=== PATIENT | female | born 1970 | race Caucasian/White ===

== ENCOUNTER → 2020-02-13 10:28 | Outpatient (BNVA) | payer OTHER, SELFPAY | PROVIDERS: PCP Internal Medicine; Referring Provider Internal Medicine; Visit Provider Physician Assistant | DX: Z76.89 Persons encountering health services in other specified circumstances (principal) ==

== ENCOUNTER → 2020-08-06 14:06 | Outpatient (BNVA) | payer OTHER, SELFPAY | PROVIDERS: PCP Internal Medicine; Visit Provider Surgery Vascular Surgery ==

== ENCOUNTER 2020-08-27 07:45 | Outpatient (REF) | payer OTHER, SELFPAY ==
--- NOTE | ~2020-08-27 | US_ITS ---
EXAMINATION: LEFT KNEE X-RAY CLINICAL INFORMATION: Pain COMPARISON: None TECHNIQUE: 3 views of the left knee FINDINGS: Bone alignment is normal. No fracture or dislocation is seen. There is joint space narrowing at the medial femoral tibial joint. Joint spaces are otherwise normal. There is no joint effusion. US/US venous duplex LE IMPRESSION: Joint space narrowing at the medial femoral tibial joint otherwise unremarkable exam. EXAMINATION: RIGHT and LEFT LOWER EXTREMITY VENOUS ULTRASOUND (Reflux Exam) CLINICAL INDICATION: leg pain and varicose veins.. History of left leg vein stripping. COMPARISON: None. TECHNIQUE: Color flow triplex imaging and compression Doppler was performed to evaluate both the deep and the superficial systems bilaterally. To evaluate the superficial system, the examination was performed in the upright position. Color-flow Doppler ultrasound and compression ultrasound were utilized. In addition, maneuvers were utilized to demonstrate reflux. FINDINGS: 1. DEEP VENOUS ULTRASOUND OF THE RIGHT LOWER EXTREMITY: Respiratory variation, normal compression and augmented flow are noted in the right common femoral vein as well as the right popliteal vein and there is no evidence of deep venous thrombosis at these locations. There is no evidence of reflux in the deep system in either the common femoral vein or the popliteal vein. There is no evidence of a Kingston's cyst. 2. SUPERFICIAL ULTRASOUND WITH DOPPLER OF RIGHT LOWER EXTREMITY: The right great saphenous vein at the saphenofemoral junction measures 6 mm, at the mid thigh 19 mm, [id number] not seen mm, plgkm-xoe-[id number] 2 mm, at mid calf 2 mm and at the ankle measures 3 mm. There is right greater saphenous vein reflux measuring 3.2 cm in the mid calf. The right small saphenous vein measures 1-3 mm and shows no reflux. There is a analysis or research safety inspector in the proximal calf that measures 2 mm and demonstrates 1.3 seconds reflux. There are 2 other larger perforators measuring 3 and 4 mm in the calf that do not demonstrate reflux. There are varicosities at the knee and calf that measure 3 to 4 mm and demonstrates 2.4 to 3 seconds reflux. 3. DEEP VENOUS ULTRASOUND OF THE LEFT LOWER EXTREMITY: Respiratory variation, normal compression and augmented flow are noted in the left common femoral vein as well as the left popliteal vein and there is no evidence of deep venous thrombosis at these locations. There is no evidence of reflux in the deep system in either the common femoral vein or the popliteal vein. . There is no evidence of a Kingston's cyst. 4. SUPERFICIAL ULTRASOUND WITH DOPPLER OF LEFT LOWER EXTREMITY: Left great saphenous vein at the saphenofemoral junction measures 9 mm, at the mid thigh 5 mm, [id number]-[id number]-[id number] 5 mm, jrmmn-ctr-mdyp 2 mm, at mid calf 2 mm and at the ankle measures 2 mm. Great saphenous there is diffuse right greater saphenous vein reflux measuring maximum 3.2 seconds at the knee. There is an accessory lateral greater saphenous vein that measures 2 mm and does not demonstrate reflux. The left small saphenous vein measures 2 mm and shows no reflux. There are is a varicosity in the mid thigh that measures 6 mm and demonstrates 1 seconds reflux in the proximal calf that measures 7 mm and demonstrates 1.6 seconds reflux. IMPRESSION: 1. No evidence of reflux or thrombus in the common femoral veins or popliteal veins bilaterally. 2. Right greater saphenous vein not identified above the knee. 3.2 seconds right greater saphenous vein reflux in the calf. Reflux in a right analysis or research safety inspector in the calf and varicosities at the knee and calf on the right. 3. Diffuse left greater saphenous vein reflux measuring maximum 3.2 seconds. Reflux in varicosities in the thigh and calf.
== END 2020-08-27 07:46 | disposition home or self-care (01) ==
LOC: HO.US 07:45
PROVIDERS: Visit Provider Surgery Vascular Surgery
DX: I83.893 Varicose veins of bilateral lower extremities with other complications (principal); M25.562 Pain in left knee
CPT/HCPCS: 73562; 93970

== ENCOUNTER → 2020-09-03 12:54 | Outpatient (BNVA) | payer OTHER, SELFPAY | PROVIDERS: PCP Internal Medicine; Visit Provider Surgery Vascular Surgery ==

== ENCOUNTER → 2020-09-20 08:32 | Outpatient (BNVA) | payer OTHER, SELFPAY | PROVIDERS: PCP Internal Medicine; Visit Provider Surgery Vascular Surgery | DX: I83.12 Varicose veins of left lower extremity with inflammation (principal) | CPT/HCPCS: 36482 ==

== ENCOUNTER 2020-09-23 14:32 | Outpatient (REF) | payer OTHER, SELFPAY ==
--- NOTE | ~2020-09-23 | US_ITS ---
EXAMINATION: US VENOUS ULTRASOUND WITH DOPPLER LOWER EXTREMITY, LEFT CLINICAL INFORMATION: Post left venous seal procedure COMPARISON: Preoperative exam 08/27/2020 TECHNIQUE: Ultrasound of the deep veins is performed from the hip to the calf with compression sonography and color and pulse Doppler assessment. Spectral analysis with color-flow imaging is performed. FINDINGS: There is normal venous compression and respiratory variation and augmented flow. The visualized common femoral vein, superficial femoral vein, profunda femoral vein, popliteal vein, and the trifurcation region shows no evidence of deep venous thrombosis. There is echogenic material seen in the left greater saphenous vein 2.9 cm from the saphenofemoral junction compatible with post venous seal procedure changes. There is no popliteal fossa cyst. US/US venous duplex LE LT IMPRESSION: No DVT demonstrated in the left lower extremity.
== END 2020-09-23 14:33 | disposition home or self-care (01) ==
LOC: HO.US 14:32
PROVIDERS: Visit Provider Surgery Vascular Surgery
DX: M79.605 Pain in left leg (principal)
CPT/HCPCS: 93971

== ENCOUNTER → 2020-10-03 08:56 | Outpatient (BNVA) | payer OTHER, SELFPAY | PROVIDERS: PCP Internal Medicine; Visit Provider Surgery Vascular Surgery ==

== ENCOUNTER 2020-11-04 11:10 | Outpatient (REF) | payer OTHER, SELFPAY ==
[2020-11-04 14:09] LABS: MANUAL DIFF FLAG NO
[2020-11-04 14:15] LABS: Basophils Absolute Auto 0.1 X10*3/uL (0.0-0.2); Basophils Percent Auto 1.5 % (0-2); Eosinophils Absolute Auto 0.6 X10*3/uL (0.0-0.4); Eosinophils Percent Auto 9.7 % (0-4); Hematocrit 38.4 % (37-47); Hemoglobin 12.1 g/dl (12.0-16.0); Imm Gran Abs Auto 0.01 X10*3/uL (0.00-0.03); Imm Gran Pct Auto 0.2 % (0.0-0.4); Lymphocytes Absolute Auto 2.4 X10*3/uL (1.2-4.9); Lymphocytes Percent Auto 41.4 % (20-40); Mean Corpuscular HGB Conc 31.5 g/dl (31.0-35.0); Mean Corpuscular Hemoglobin 27.8 pg (27.0-33.0); Mean Corpuscular Volume 88.1 fL (80-98); Mean Platelet Volume 10.3 fL (9.4-12.3); Monocytes Absolute Auto 0.6 X10*3/uL (0.1-1.2); Monocytes Percent Auto 9.3 % (2-11); Neutrophils Absolute Auto 2.2 X10*3/uL (2.0-8.3); Neutrophils Percent Auto 37.9 % (45-73); Platelet Count 409 X10*3/uL (160-400); Red Blood Count 4.36 X10*6/uL (4.20-5.50); Red Cell Distribution Width 13.5 % (11.0-16.0); White Blood Count 5.9 X10*3/uL (4.8-10.8)
[2020-11-04 14:30] LABS: Alanine Aminotransferase 19 U/L (0-31); Albumin Level 4.4 g/dL (3.5-5.0); Alkaline Phosphatase 66 U/L (39-117); Anion Gap 15 (12-20); Aspartate Amino Transferase 16 U/L (5-31); Bilirubin Total 0.3 mg/dL (0.0-1.0); Blood Urea Nitrogen 14 mg/dL (9-16); Calcium 9.6 mg/dL (8.4-10.2); Carbon Dioxide 24 mmol/L (22-29); Chloride 105 mmol/L (96-108); Cholesterol 201 mg/dL; Estimated Glomerular Filt Rate > 60; Glucose Fasting 88 mg/dL (60-99); HDL Cholesterol 55 mg/dL; LDL Cholesterol Calculated 120 mg/dl; Potassium 5.3 mmol/L (3.3-5.1); Sodium 139 mmol/L (135-145); Total Protein 7.4 g/dL (6.5-8.0); Triglycerides 132 mg/dL
[2020-11-04 14:52] LABS: TSH reflex Free T4 1.93 uIU/mL (0.32-4.0)
[2020-11-09 14:46] LABS: Vitamin D 25-OH, D2 <4 ng/mL; Vitamin D 25-OH, D3 35 ng/mL; Vitamin D 25-OH, Total 35 ng/mL (30-100)
== END 2020-11-04 11:11 | disposition home or self-care (01) ==
LOC: HO.HMGCLDS 11:10
PROVIDERS: PCP Internal Medicine; Visit Provider Internal Medicine
DX: Z00.01 Encounter for general adult medical examination with abnormal findings (principal); E66.09 Other obesity due to excess calories
CPT/HCPCS: 36415; 80053; 80061; 82306; 84443; 85025

== ENCOUNTER 2020-12-23 10:29 | Outpatient (REF) | payer OTHER, SELFPAY ==
--- NOTE | ~2020-12-23 | MM_ITS ---
EXAMINATION: MM SCREENING DIGITAL BREAST TOMOSYNTHESIS, BILATERAL CLINICAL INFORMATION: Screening. Asymptomatic. The lifetime risk of breast cancer based on the Tyrer-Cuzick Model is 8%. COMPARISON: Mammography: 01/27/2019, outside mammography 03/01/2012 ([place]). Targeted ultrasound left breast 02/08/2019. TECHNIQUE: Digital breast tomosynthesis is performed in both the craniocaudal and mediolateral oblique views along with computer-aided detection (CAD). Synthesized 2D images are generated from the tomosynthesis. FINDINGS: The breasts are heterogeneously dense, which may obscure small masses (ACR BI-RADS breast composition Category c). Breast tissue composition borders on average fibroglandular. Parenchymal pattern is similar to prior studies. There is no architectural abnormality or developing density. The axilla and skin contours are unremarkable. There are scattered punctate calcifications again seen in both breasts. No suspicious calcifications. MM/MM tomosynthesis screening BI IMPRESSION: No mammographic evidence of malignancy. ASSESSMENT: BI-RADS 2: Benign RECOMMENDATION: Routine annual mammography screening. This patient's information was entered into a reminder system with a target due date for their next mammogram.
== END 2020-12-23 10:30 | disposition home or self-care (01) ==
LOC: HO.MAMMO 10:29
PROVIDERS: PCP Internal Medicine; Visit Provider Internal Medicine
DX: Z12.31 Encounter for screening mammogram for malignant neoplasm of breast (principal)
CPT/HCPCS: 77063; 77067

== ENCOUNTER 2021-04-08 09:30 | Outpatient (REF) | payer OTHER, SELFPAY ==
[2021-04-09 09:10] LABS: BV Int Neg Control Negative (Negative); BV Int Pos Control Positive (Positive)
[2021-04-09 10:32] LABS: CT PCR NOT DETECTED (Not Detect.); NG PCR NOT DETECTED (Not Detect.)
[2021-04-10 22:52] LABS: HPV mRNA E6/E7 rflx Not Detected (Not Detected)
== END 2021-04-08 09:31 | disposition home or self-care (01) ==
LOC: HO.LAB 09:30
PROVIDERS: Visit Provider Advanced Practice Midwife
DX: Z01.419 Encounter for gynecological examination (general) (routine) without abnormal findings (principal); N94.6 Dysmenorrhea, unspecified
CPT/HCPCS: 87480; 87491; 87510; 87591; 87624; 87660; 88142

== ENCOUNTER 2021-11-10 08:39 | Outpatient (REF) | payer OTHER, SELFPAY ==
[2021-11-10 11:38] LABS: MANUAL DIFF FLAG NO
[2021-11-10 11:47] LABS: Basophils Absolute Auto 0.1 X10*3/uL (0.0-0.2); Basophils Percent Auto 1.3 % (0-2); Eosinophils Absolute Auto 0.3 X10*3/uL (0.0-0.4); Hematocrit 35.8 % (37.0-47.0); Hemoglobin 11.2 g/dl (12.0-16.0); Imm Gran Abs Auto 0.02 X10*3/uL (0.00-0.03); Imm Gran Pct Auto 0.3 % (0.0-0.4); Lymphocytes Absolute Auto 2.1 X10*3/uL (1.2-4.9); Lymphocytes Percent Auto 34.7 % (20-40); Mean Corpuscular HGB Conc 31.3 g/dl (31.0-35.0); Mean Corpuscular Hemoglobin 25.9 pg (27.0-33.0); Mean Corpuscular Volume 82.7 fL (80.0-98.0); Mean Platelet Volume 10.3 fL (9.4-12.3); Monocytes Absolute Auto 0.5 X10*3/uL (0.1-1.2); Monocytes Percent Auto 8.2 % (2-11); Neutrophils Percent Auto 50.5 % (45-73); Platelet Count 459 X10*3/uL (160-400); Red Blood Count 4.33 X10*6/uL (4.20-5.50); Red Cell Distribution Width 16.8 % (11.0-16.0)
[2021-11-10 11:57] LABS: Alanine Aminotransferase 17 U/L (0-31); Alkaline Phosphatase 62 U/L (39-117); Anion Gap 12 (12-20); Aspartate Amino Transferase 15 U/L (5-31); Bilirubin Total 0.6 mg/dL (0.0-1.0); Blood Urea Nitrogen 13 mg/dL (9-16); Calcium 8.8 mg/dL (8.4-10.2); Carbon Dioxide 26 mmol/L (22-29); Chloride 105 mmol/L (96-108); Cholesterol 203 mg/dL; Estimated Glomerular Filt Rate > 60; Glucose Fasting 93 mg/dL (60-99); HDL Cholesterol 59 mg/dL; LDL Cholesterol Calculated 125 mg/dl; Potassium 4.2 mmol/L (3.3-5.1); Sodium 139 mmol/L (135-145); Total Protein 6.9 g/dL (6.5-8.0); Triglycerides 96 mg/dL
[2021-11-10 12:23] LABS: TSH reflex Free T4 1.86 uIU/mL (0.32-4.0)
[2021-11-15 16:13] LABS: Vitamin D 25-OH, D2 <4 ng/mL; Vitamin D 25-OH, D3 29 ng/mL; Vitamin D 25-OH, Total 29 ng/mL (30-100)
== END 2021-11-10 08:40 | disposition home or self-care (01) ==
LOC: HO.HMGCLDS 08:39
PROVIDERS: PCP Internal Medicine; Visit Provider Internal Medicine
DX: Z00.01 Encounter for general adult medical examination with abnormal findings (principal); R09.82 Postnasal drip; E66.09 Other obesity due to excess calories; M79.671 Pain in right foot; M79.672 Pain in left foot
CPT/HCPCS: 36415; 80053; 80061; 82306; 84443; 85025

== ENCOUNTER 2021-12-29 10:26 | Outpatient (REF) | payer OTHER, SELFPAY ==
--- NOTE | ~2021-12-29 | MM_ITS ---
EXAMINATION: MM SCREENING DIGITAL BREAST TOMOSYNTHESIS, BILATERAL CLINICAL INFORMATION: Screening. Asymptomatic. The lifetime risk of breast cancer based on the Tyrer-Cuzick Model is 8%. COMPARISON: Mammography: 12/23/2020, 01/27/2019, 03/01/2012 TECHNIQUE: Digital breast tomosynthesis is performed in both the craniocaudal and mediolateral oblique views along with computer-aided detection (CAD). Synthesized 2D images are generated from the tomosynthesis. Additional exaggerated left CC view is provided. FINDINGS: The breasts are heterogeneously dense, which may obscure small masses (ACR BI-RADS breast composition Category c). There are no significant masses, abnormal calcifications, or other abnormalities. Parenchymal pattern is similar to prior studies. There is no developing density or architectural abnormality. The axilla and skin contours are unremarkable. No significant changes. MM/MM tomosynthesis screening BI IMPRESSION: No mammographic evidence of malignancy. ASSESSMENT: BI-RADS 1: Negative RECOMMENDATION: Routine annual mammography screening. This patient's information was entered into a reminder system with a target due date for their next mammogram.
== END 2021-12-29 10:27 | disposition home or self-care (01) ==
LOC: HO.MAMMO 10:26
PROVIDERS: PCP Internal Medicine; Visit Provider Internal Medicine
DX: Z12.31 Encounter for screening mammogram for malignant neoplasm of breast (principal)
CPT/HCPCS: 77063; 77067

== ENCOUNTER 2022-08-04 12:34 | Outpatient (REF) | payer OTHER, SELFPAY | END 2022-08-04 12:35 | disposition home or self-care (01) | LOC: HO.LNP 12:34 | PROVIDERS: PCP Internal Medicine; Visit Provider Advanced Practice Midwife | DX: Z01.419 Encounter for gynecological examination (general) (routine) without abnormal findings (principal); R10.30 Lower abdominal pain, unspecified; N89.8 Other specified noninflammatory disorders of vagina | CPT/HCPCS: 81003; 81025 ==

== ENCOUNTER 2022-08-04 13:07 | Outpatient (REF) | payer OTHER, SELFPAY ==
[2022-08-05 06:44] LABS: CT PCR NOT DETECTED (Not Detect.); NG PCR NOT DETECTED (Not Detect.)
[2022-08-05 12:36] LABS: BV Int Neg Control Negative (Negative); BV Int Pos Control Positive (Positive)
== END 2022-08-04 13:08 | disposition home or self-care (01) ==
LOC: HO.LAB 13:07
PROVIDERS: Visit Provider Advanced Practice Midwife
DX: R10.30 Lower abdominal pain, unspecified (principal); N89.8 Other specified noninflammatory disorders of vagina
CPT/HCPCS: 0353U; 87480; 87510; 87660

== ENCOUNTER 2022-08-19 11:18 | Outpatient (REF) | payer OTHER, SELFPAY | END 2022-08-19 11:19 | disposition home or self-care (01) | LOC: HO.US 11:18 | PROVIDERS: PCP Internal Medicine; Visit Provider Advanced Practice Midwife | DX: Z13.89 Encounter for screening for other disorder (principal) ==

== ENCOUNTER 2022-08-21 13:54 | Outpatient (REF) | payer OTHER, SELFPAY ==
--- NOTE | ~2022-08-21 | US_ITS ---
EXAMINATION: US PELVIS CLINICAL INFORMATION: Lower abdominal pain. COMPARISON: None available. TECHNIQUE: Ultrasound of the pelvis is performed using both transabdominal and transvaginal transducers along with Doppler. Transvaginal imaging is performed due to inadequate visualization transabdominally. FINDINGS: UTERUS: The uterus is retroverted, retroflexed and measures 10.3 x 6.2 x 7.0 cm. The double wall endometrial thickness is 0.6 cm. The uterus is smooth in contour and has normal myometrial echogenicity. There is a hypoechoic lesion in the posterior fundus measuring 1.1 x 0.8 x 1.0 cm. Previously it measured 1.2 x 0.8 x 1.2 cm consistent with fibroid. ADNEXA: Both ovaries are visualized. There is normal color flow to the adnexa. There is no ovarian torsion. There is no pelvic ascites or fluid collection. Right ovary measures 2.7 x 1.3 x 1.3 cm and volume 2.3 mL. Small dominant follicle is seen. Previously it measured 2.5 x 2.5 x 2.9 cm. Left ovary measures 2.9 x 0.9 x 1.2 cm and volume 1.6 mL. It appears unremarkable. Previously it measured 3.3 x 1.6 x 1.9 cm. There is no free fluid in the cul-de-sac. US/US pelvic and transvaginal IMPRESSION: 1. Small uterine fibroid. 2. Small dominant follicle right ovary. 3. The left ovary is unremarkable. 4. There is no free fluid in the cul-de-sac.
== END 2022-08-21 13:55 | disposition home or self-care (01) ==
LOC: HO.US 13:54
PROVIDERS: PCP Internal Medicine; Visit Provider Advanced Practice Midwife
DX: R10.30 Lower abdominal pain, unspecified (principal); R10.2 Pelvic and perineal pain
CPT/HCPCS: 76830; 76856

== ENCOUNTER → 2022-09-02 12:45 | Outpatient (BNVA) | payer OTHER, SELFPAY | PROVIDERS: PCP Internal Medicine; Visit Provider Advanced Practice Midwife ==

== ENCOUNTER 2023-01-05 08:55 | Outpatient (REF) | payer OTHER, SELFPAY | END 2023-01-05 08:56 | disposition home or self-care (01) | LOC: HO.MAMMO 08:55 | PROVIDERS: PCP Internal Medicine; Visit Provider Internal Medicine | DX: Z12.31 Encounter for screening mammogram for malignant neoplasm of breast (principal) | CPT/HCPCS: 77063; 77067 ==

== ENCOUNTER → 2023-01-05 10:00 | Outpatient (BNV) | payer OTHER, SELFPAY | PROVIDERS: PCP Internal Medicine; Visit Provider Radiology Diagnostic Radiology | DX: Z12.31 Encounter for screening mammogram for malignant neoplasm of breast (principal) | CPT/HCPCS: 77063; 77067 ==

== ENCOUNTER 2023-08-10 08:55 | Outpatient (AMB) | payer OTHER, SELFPAY ==
--- NOTE | 2023-08-10 08:58 | A.OFFVIS_ITS ---
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 She is doing well with no concerns. Attempting to eat a healthy diet with calcium and vitamin D and stays active with exercise. Currently sexually active. Denies any vaginal dryness or irritation. Regular menses x3-5d, some cramping, uses Ibuprofen with relief. STI testing offered; she declines. Last pap smear; 2021, negative. Last mammogram; 2022. Colonoscopy is UTD. Denies any family history of breast, ovarian or colon cancer. ON LICENSE OF [facility] Medical History Globus sensation Odynophagia Postnasal drip Surgical History Hx of endoscopy History of colonoscopy Family History Father Family history of high blood pressure Mother History of cancer Maternal Aunt History of breast cancer Social History Housing: House Alcohol intake: current Alcohol intake frequency: holidays/special occasions only Patient Tobacco Use Status: Never used Tobacco e-Cigarette/Vaping Use: Never Used Second Hand Smoke Exposure: No Patient : No Current occupational status: employed Sexual orientation: Straight/Heterosexual Gender identity: Female Cognitive needs: No Hearing needs: No Vision needs: No Female Reproductive History Menstrual Age of Menarche: 14 Duration of menses: 3-5 days Date of last menstrual period: 07/18/23 control method: none Total pregnancies: 4 Full term: 4 Number of Living Children: 4 Date of last pap smear: 04/09/21 History of abnormal pap smear: No Date of Mammogram: 01/05/23 Review of Systems Const All systems reviewed & are unremarkable except as noted in HPI and below Reports as per HPI Eyes Reports no additional complaints ENT Reports no additional complaints Card Reports no additional complaints Resp Reports no additional complaints GI Reports as per HPI and Reports no additional complaints Reports as per HPI Musc Reports no additional complaints Skin/Breast Reports as per HPI Neuro Reports no additional complaints Psych Reports no additional complaints Endo Reports no additional complaints Armin/Lymph Reports no additional complaints Aller/Immun Reports no additional complaints Physical Exam Vital Signs: Last Vital Signs BP 110/70 08/10/23 09:00 BMI result Body Mass Index 33.8 Const General: cooperative, healthy appearing, no acute distress, well developed and alert Orientation/consciousness: patient oriented x3 HEENT Head: Yes normal to inspection Eyes General: appearance normal, both eyes and all related structures Neck Neck: Yes normal visual inspection Thyroid: Thyroid normal Chest Chest palpation & inspection: normal inspection of the chest and other (no puckering, dimpling, peau de orange, retraction, discharge, masses) Breast/axilla inspection: normal inspection of the breasts Breast/axilla palpation: normal palpation of the breasts Resp Effort & Inspection: normal respiratory effort GI Inspection: Yes normal to inspection Palpation (GI): Soft to palpation Rectal Exam - Female: deferred General: Yes bladder normal to palpation External Female Exam: normal external appearance and normal appearance of the urethra Speculum Exam - Vagina: normal appearance of the vagina, normal palpation and normal vaginal discharge Speculum Exam - Cervix: normal appearance of the cervix and normal palpation Bimanual exam- vagina & uterus: normal bimanual exam, normal palpation, uterine size normal, bladder normal to palpation, normal palpation and non-tender Bimanual Exam- Adnexa, other: no masses Skin General skin exam: no rashes or lesions noted Rashes: no rashes Neuro General: patient oriented x3 Cognition (Neuro): normal cognition Extrem General: Yes normal to inspection Psych Attitude: cooperative Thought process: Normal thought process present Assessment & Plan Assessment & Plan (1) Encounter for well woman exam with routine gynecological exam: Code(s): Z01.419 - Encounter for gynecological examination (general) (routine) without abnormal findings Plan Discussed: Current recommendations for pap smears per ASCCP guidelines. Breast awareness, periodic self breast exams and yearly mammogram. Maintain a healthy lifestyle, well balanced diet including Calcium 1,200 mg and Vitamin D 600 IU daily, and routine exercise. Contact the office with any AUB, heavy and prolonged bleeding or closely spaced cycles. Patient verbalizes understanding and agrees to the plan of care. She was given opportunity to ask questions and all questions were answered to the best of my ability. RTO in 1 year for annual storage management consultant exam. This note is constructed using voice recognition software. While every effort has been made to ensure accuracy, polisher eyeglass frames errors may have been included. Coding Level of Care Code Est Pt Prev Care 40-64y(30829) Diagnoses Encounter for well woman exam with routine gynecological exam Z01.419
[2023-08-10 09:00] VITALS: BP 110/70; BMI 33.8
== END 2023-08-10 09:42 | disposition home or self-care (01) ==
PROVIDERS: PCP Internal Medicine; Visit Provider Advanced Practice Midwife
DX: Z01.419 Encounter for gynecological examination (general) (routine) without abnormal findings (principal)
CPT/HCPCS: 99396

== ENCOUNTER → 2023-08-10 08:55 | Outpatient (BNVA) | payer OTHER, SELFPAY | PROVIDERS: PCP Internal Medicine; Visit Provider Advanced Practice Midwife ==

== ENCOUNTER 2024-02-18 15:40 | Outpatient (REF) | payer OTHER, SELFPAY ==
--- NOTE | ~2024-02-18 | MM_ITS ---
EXAMINATION: MM SCREENING DIGITAL BREAST TOMOSYNTHESIS, BILATERAL CLINICAL INFORMATION: Screening. Asymptomatic. COMPARISON: Mammography: Comparison is made with available priors TECHNIQUE: Digital breast mammography with tomosynthesis is performed in both the craniocaudal and mediolateral oblique views along with computer-aided detection (CAD). FINDINGS: The breasts are heterogeneously dense, which may obscure small masses (ACR BI-RADS breast composition Category c). There are no significant masses, abnormal calcifications, or other abnormalities. MM/MM tomosynthesis screening BI IMPRESSION: No mammographic evidence of malignancy. ASSESSMENT: BI-RADS BI-RADS 1 - Negative RECOMMENDATION: Routine annual mammography screening. 1 year F/U This examination should not preclude the clinical evaluation of a suspicious palpable abnormality. This patient's information was entered into a reminder system with a target due date for their next mammogram. Electronically signed by: Karen Woods DO 03/01/2024 09:00 AM JOSE ROBERTO
== END 2024-02-18 15:41 | disposition home or self-care (01) ==
LOC: HO.MAMMO 15:40
PROVIDERS: PCP Internal Medicine; Visit Provider Internal Medicine
DX: Z12.31 Encounter for screening mammogram for malignant neoplasm of breast (principal)
CPT/HCPCS: 77063; 77067

== ENCOUNTER → 2024-02-18 16:00 | Outpatient (BNV) | payer OTHER, SELFPAY | PROVIDERS: PCP Internal Medicine; Visit Provider Internal Medicine | DX: Z12.31 Encounter for screening mammogram for malignant neoplasm of breast (principal) | CPT/HCPCS: 77063; 77067 ==

== ENCOUNTER 2024-06-21 12:26 | Outpatient (AMB) | payer OTHER, SELFPAY ==
--- NOTE | 2024-06-21 12:28 | A.OFFPC_ITS ---
Vital Signs 06/21/24 12:29 Height 5 ft 8 in Weight 227 lb 8 oz BMI 34.6 BP 118/78 Blood Pressure Location Rt brachial Position Sitting Pulse 78 Pulse Source Pulse Oximeter Pulse Oximetry (%) 98 Oxygen Delivery Method Room Air Intake Visit Reasons: OVERDUE ANNUAL PE- see comments Allergies No Known Allergies [No Known Allergies*] Allergy (Verified 06/21/24 12:30) Medication List - Last Reconciled 06/21/24 by Roseanne Edward MD ibuprofen (Advil) 400 mg PO Q8H naproxen sodium (Aleve) 220 mg PO BID PRN Tobacco use date assessed: 06/21/24 Dental Screening Dental Screen Date: 06/21/24 Did you have a dental visit in the last 12 months?: Yes Did you have a dental problem in the last 6 months where you did not have access to dental care?: No Was dental information given to patient?: Patient has dentist HPI OVERDUE ANNUAL PE- see comments HPI Details Physical exam appointment Last time seen was 2021 The patient is a 53-year-old female presenting with a wellness exam and concerns about an underarm issue. - Recently became aware of an underarm c oncern roughly one week ago, observing something ailyn to a lump. - Intermittently experiences slight pain in the left ear, suspecting earwax buildup but hesitant to self-clean due to previous advice. Health Maintenance - Discussed and planned future colonosco py in 2026. Last colonoscopy was in 2019 at [facility] - has appointment coming up for OBGYN an d mammogram - Blood tests were ordered for fasting w ith an option for non-fasting if necessary. - fits test kit provided to patient - BMI elevated need to lose weight On examination there is no lumps or pain left under arm Breast exam is benign Encouraged patient to come at least once a year for annual wellness exam Review of Systems - General: No fever no chills - Neurological: No headaches no dizzin ess - Ear nose throat: No sore throat no hearing difficulty no ear pain - Cardiovascular: No syncope, no chest pain, no palpitations - Gastrointestinal: No nausea vomiting or diarrhea - Endocrine: No polyuria polydipsia no heat intolerance - Genitourinary: No dysuria - Skin: No new complaints Physical Exam General: Cooperative, healthy appearing, comfortable, no acute distress Orientation: Patient oriented x3 Head: Normal to inspection Ears: Within normal limit visually, no pain or lumps found Nose: Normal external nose present Face and sinus: Normal facial exam Eyes: Appearance normal, extraocular movement intact pupils reactive Neck: Normal visual inspection and supple Respiratory: Normal respiratory effort and able to speak in complete sentences. Clear to auscultation, no stridor Cardiovascular: S1 and S2 Breast exam benign Axillary exam benign GI: Normal to inspection. Soft to palpation and nontender Skin: turgor normal, no acute findings Neuro: Patient oriented x3, motor sensory intact, balance intact, tandem pass Extremities: Normal to inspection [facility] Medical History Postnasal drip Odynophagia Globus sensation Surgical History Hx of endoscopy History of colonoscopy Family History Father Family history of high blood pressure Mother History of cancer Maternal Aunt History of breast cancer Social History Housing: House Alcohol intake: current Alcohol intake frequency: holidays/special occasions only Patient Tobacco Use Status: Never used Tobacco e-Cigarette/Vaping Use: Never Used Second Hand Smoke Exposure: No Current occupational status: employed Sexual orientation: Straight/Heterosexual Gender identity: Female Cognitive needs: No Hearing needs: No Vision needs: No Female Reproductive History Menstrual Age of Menarche: 14 Questionnaire PHQ-9 Over the last 2 weeks, how often have you been bothered by any of the following problems? 65350 - PHQ-9 Billing: Patient declined-do not bill Source: Developed by Drs. Trae Granger, Zara Vasquez, Jacob Helms and colleagues, with an educational laura from [employer]. Thrive Questionnaire Date Thrive assessed: 06/21/24 I am a: Patient What is your living situation today?: I have a steady place to live Within the past 12 months, did the food you bought not last and you didn't have the money to get more?: Never true Within the past 12 months, did you worry whether your food would run out before you got money to buy more?: I choose not to answer this question Do you have trouble paying for medicines?: I choose not to answer this question Do you have trouble getting transportation to medical appointments?: No Do you have trouble paying your heating and electricity bill?: I choose not to answer this question Do you have trouble taking care of your child, family member or friend?: No Do you have trouble with day-to-day activities such as bathing, preparing meals, shopping, managing finances, etc.?: No Are you currently unemployed and looking for a job?: No Are you interested in more education?: I choose not to answer this question Please select the resources that you would like help with: None Currently or been in a relationship where the following occur: I choose not to answer THRIVE Score: 0 AUDIT C Alcohol Use Questionnaire (AUDIT-C) 1. How often do you have a drink containing alcohol?: Monthly or less 3. How often do you have six or more drinks on one occasion?: Never Total Score: 1 Score Reviewed/Action Taken: Yes TERRENCE-7 AMB Questionnaire TERRENCE-7 Date TERRENCE - 7 assessed: 06/21/24 Feeling nervous, anxious, or on edge: 1 = Several days Not being able to stop or control worryin = Not at all Worrying too much about different things: 1 = Several days Trouble relaxin = Not at all Being so restless that it is hard to sit still: 0 = Not at all Becoming easily annoyed or irritable: 1 = Several days Feeling afraid as if something awful might happen: 0 = Not at all Total TERRENCE-7 score (0-4 normal; 5-9 mild; 10-14 moderate; 15-21 severe): 3 Source: Developed by Drs. Trae Granger, Zara Vasquez, Jacob Helms and colleagues, with an educational laura from [employer]. TERRENCE-7 Assessment Billing TERRENCE-7 Assessment Tool: TERRENCE-7 Assessment 77552 Physical exam (Primary Care) Vital Signs: Last Vital Signs Pulse 78 06/21/24 12:29 BP 118/78 06/21/24 12:29 Pulse Ox 98 06/21/24 12:29 Oxygen Delivery Method Room Air 06/21/24 12:29 BMI result Body Mass Index 34.6 Tobacco/Smoking Status: Tobacco use Status Tobacco use date assessed 06/21/24 06/21/24 12:32 Patient Tobacco Use Status Never used Tobacco 06/21/24 12:28 e-Cigarette/Vaping Use Never Used 06/21/24 12:28 Thrive Assessment: Date of Thrive Assessment Date Thrive assessed 06/21/24 06/21/24 12:32 Currently or been in a relationship where the following occur: I choose not to answer Coding Level of Care Code Est Pt Level 3 (98054) Est Pt Prev Care 40-64y(76008) Diagnoses Encounter for general adult medical examination with abnormal findings Z00.01 Class 1 obesity due to excess calories without serious comorbidity with body mass index (BMI) of 34.0 to 34.9 in adult E66.811; E66.09; Z68.34 Obesity classification: adult class 1 (BMI 30 - 34.9) Serious obesity comorbidity presence: without serious comorbidity Body mass index: BMI 34.0-34.9 Additional Codes TERRENCE-7 Assessment Billing - TERRENCE-7 Assessment Tool: TERRENCE-7 Assessment 25502 ([id number]) Assessment & Plan Assessment & Plan (1) Encounter for general adult medical examination with abnormal findings: Code(s): Z00.01 - Encounter for general adult medical examination with abnormal findings Category: Medical (2) Obesity due to excess calories: Code(s): E66.09 - Other obesity due to excess calories Category: Medical Qualifiers: Obesity classification: adult class 1 (BMI 30 - 34.9) Serious obesity comorbidity presence: without serious comorbidity Body mass index: BMI 34.0- 34.9 Qualified Code(s): E66.811 - Obesity, class 1; E66.09 - Other obesity due to excess calories; Z68.34 - Body mass index [BMI] 34.0-34.9, adult Plan Physical exam appointment Last time seen was 2021 The patient is a 53-year-old female presenting with a wellness exam and concerns about an underarm issue. - Recently became aware of an underarm concern roughly one week ago, observing something ailyn to a lump. - Intermittently experiences slight pain in the left ear, suspecting earwax buildup but hesitant to self-clean due to previous advice. Health Maintenance - Discussed and planned future colonoscopy in 2026. Last colonoscopy was in 2019 at [facility] - has appointment coming up for OBGYN and mammogram - Blood tests were ordered for fasting with an option for non-fasting if necessary. - fits test kit provided to patient - BMI elevated need to lose weight On examination there is no lumps or pain left under arm Breast exam is benign Encouraged patient to come at least once a year for annual wellness exam Orders: Orders TSH reflex Free T4 Today E66.09 - Other obesity due to excess calories, Z00.01 - Encounter for general adult medical examination with abnormal findings AMB Stool Cards / FIT Kit Given Today Z12.11 - Encounter for screening for malignant neoplasm of colon Comprehensive [place]. Panel Fast Today E66.09 - Other obesity due to excess calories Complete Blood Count Auto Diff Today E66.09 - Other obesity due to excess calories, Z00.01 - Encounter for general adult medical examination with abnormal findings Lipid Panel Today E66.09 - Other obesity due to excess calories, Z00.01 - Encounter for general adult medical examination with abnormal findings Vitamin D 25-OH (D2 and D3) Today E66.09 - Other obesity due to excess calories, Z00.01 - Encounter for general adult medical examination with abnormal findings UA CC w/rflx Micro + Cult Today E66.09 - Other obesity due to excess calories, Z00.01 - Encounter for general adult medical examination with abnormal findings
[2024-06-21 12:29] VITALS: BP 118/78; PULSE 78; O2SAT 98; BMI 34.6
== END 2024-06-21 12:54 | disposition home or self-care (01) ==
LOC: HO.HMCC 12:27
PROVIDERS: PCP Internal Medicine; Visit Provider Internal Medicine
DX: Z00.01 Encounter for general adult medical examination with abnormal findings (principal); E66.811 Obesity, class 1; Z68.34 Body mass index [BMI] 34.0-34.9, adult

== ENCOUNTER → 2024-06-21 12:26 | Outpatient (BNVA) | payer OTHER, SELFPAY | PROVIDERS: PCP Internal Medicine; Visit Provider Internal Medicine | DX: Z00.01 Encounter for general adult medical examination with abnormal findings (principal); E66.811 Obesity, class 1; E66.09 Other obesity due to excess calories; Z68.34 Body mass index [BMI] 34.0-34.9, adult | CPT/HCPCS: 96127 ==

== ENCOUNTER 2024-06-29 10:56 | Outpatient (REF) | payer OTHER, SELFPAY ==
[2024-07-04 11:14] LABS: FIT1 NEGATIVE (NEGATIVE)
[2024-07-04 11:15] LABS: FIT Int Ctl YES; FIT Lot M01203; FIT2 NEGATIVE (NEGATIVE)
== END 2024-06-29 10:57 | disposition home or self-care (01) ==
LOC: HO.LNP 10:56
PROVIDERS: Visit Provider Internal Medicine
DX: Z12.11 Encounter for screening for malignant neoplasm of colon (principal)
CPT/HCPCS: 82274

== ENCOUNTER 2024-07-04 08:10 | Outpatient (REF) | payer OTHER, SELFPAY ==
[2024-07-04 10:01] LABS: MANUAL DIFF FLAG NO
[2024-07-04 10:08] LABS: Basophils Absolute Auto 0.1 X10*3/uL (0.0-0.2); Basophils Percent Auto 1.6 % (0-2); Eosinophils Absolute Auto 0.3 X10*3/uL (0.0-0.4); Eosinophils Percent Auto 5.3 % (0-4); Hematocrit 40.2 % (37.0-47.0); Imm Gran Abs Auto 0.01 X10*3/uL (0.00-0.03); Imm Gran Pct Auto 0.2 % (0.0-0.4); Lymphocytes Absolute Auto 1.9 X10*3/uL (1.2-4.9); Lymphocytes Percent Auto 37.6 % (20-40); Mean Corpuscular HGB Conc 32.3 g/dl (31.0-35.0); Mean Corpuscular Hemoglobin 28.6 pg (27.0-33.0); Mean Corpuscular Volume 88.5 fL (80.0-98.0); Mean Platelet Volume 10.9 fL (9.4-12.3); Monocytes Absolute Auto 0.5 X10*3/uL (0.1-1.2); Monocytes Percent Auto 8.8 % (2-11); Neutrophils Absolute Auto 2.4 x10*3/uL (2.0-8.3); Neutrophils Percent Auto 46.5 % (45-73); Platelet Count 314 X10*3/uL (160-400); Red Blood Count 4.54 X10*6/uL (4.20-5.50); Red Cell Distribution Width 13.9 % (11.0-16.0); White Blood Count 5.1 X10*3/uL (4.8-10.8)
[2024-07-04 10:11] LABS: Appearance Urine Clear; Color Urine Yellow; Glucose Urine UA Negative (Negative); Leukocyte Esterase Urine Trace (Negative); Nitrite Urine Negative (Negative); UMIC TRIGGER UACC YES; Urine Blood Negative (Negative); Urine Ketones Negative (Negative); Urine Protein Negative (Neg-Trace)
[2024-07-04 10:15] LABS: Bacteria Urine None Seen (None Seen); Hyaline Casts Urine 0-2 /LPF (0-2); RBC Urine 0-2 /HPF (0-2); WBC Urine 0-5 /HPF (0-5)
[2024-07-04 10:31] LABS: Alanine Aminotransferase 25 U/L (0-31); Albumin Level 4.2 g/dL (3.5-5.0); Alkaline Phosphatase 61 U/L (39-117); Anion Gap 10 (12-20); Aspartate Amino Transferase 26 U/L (5-31); Bilirubin Total 0.4 mg/dL (0.0-1.0); Blood Urea Nitrogen 13 mg/dL (9-16); Calcium 9.4 mg/dL (8.4-10.2); Carbon Dioxide 26 mmol/L (22-29); Chloride 109 mmol/L (96-108); Cholesterol 207 mg/dL (<200); Estimated Glomerular Filt Rate > 60; Glucose Fasting 86 mg/dL (60-99); HDL Cholesterol 59 mg/dL (>40); LDL Cholesterol Calculated 126 mg/dL (<100); Potassium 4.2 mmol/L (3.3-5.1); Sodium 141 mmol/L (135-145); Total Protein 7.1 g/dL (6.5-8.0); Triglycerides 110 mg/dL (<150)
[2024-07-04 10:49] LABS: TSH reflex Free T4 2.72 uIU/mL (0.32-4.0)
[2024-07-08 15:59] LABS: Vitamin D 25-OH, D2 <4 ng/mL; Vitamin D 25-OH, D3 62 ng/mL; Vitamin D 25-OH, Total 62 ng/mL (30-100)
== END 2024-07-04 08:11 | disposition home or self-care (01) ==
LOC: HO.HMGCLDS 08:10
PROVIDERS: PCP Internal Medicine; Visit Provider Internal Medicine
DX: Z00.01 Encounter for general adult medical examination with abnormal findings (principal); E66.09 Other obesity due to excess calories
CPT/HCPCS: 36415; 80053; 80061; 81001; 82306; 84443; 85025

== ENCOUNTER 2024-10-31 10:41 | Outpatient (AMB) | payer OTHER, SELFPAY ==
[2024-10-31 10:49] VITALS: BP 128/80; PULSE 65; TEMP 36.8; O2SAT 98; BMI 36.8
--- NOTE | 2024-10-31 10:49 | AM.OFFWIN_ITS ---
Intake Vital Signs 10/31/24 10:49 Height 5 ft 8 in Weight 242 lb BMI 36.8 BP 128/80 Blood Pressure Location Lt brachial Position Sitting Pulse 65 Pulse Source Pulse Oximeter Temp 98.2 F Temp Source Oral Pulse Oximetry (%) 98 Oxygen Delivery Method Room Air Intake Visit Reasons: EP-lt foot lump Intake Note: presents with lump to top of left foot, formed end of June. states area feels numb, tight and painful at nighttime Patient Tobacco Use Status: Never used Tobacco Allergies No Known Allergies (No Known Allergies*) Allergy (Verified 10/31/24 10:55) Medication List - Last Reconciled 10/31/24 by Radha Lopez PA-C ibuprofen (Advil) 400 mg PO Q8H naproxen sodium (Aleve) 220 mg PO BID PRN Do you need a note to return to daycare/school/sports/work: No HPI HPI Comments History of Present Illness Details History of Present Illness - The patient is a 54-year-old female pr esenting with a mass on the top of her left foot. - The bunion began three months ago, mark earing suddenly without any known injury. - The patient postponed medical consulta tion due to a planned vacation. - Symptoms include a hard, bone-like pro trusion with pulling pain and occasional numbness. - The condition worsens in the evening, with swelling of the foot and toes. - She has trouble wearing a shoe or a fl ip flop. - She has no pain with weight bearing. - She has no redness, warm, fluctuance, or induration. Physical Exam General: Cooperative, healthy appearing, comfortable, no acute distress and well developed Orientation: Patient oriented x3 Respiratory: Normal respiratory effort and able to speak in complete sentences. Clear to auscultation bilaterally Cardiovascular: Regular rate and rhythm. Normal S1 and S2 Skin: No rashes or lesions noted Neuro: Sensation is intact. Extremities: Swelling noted on the foot over the 2nd, 3rd and 4th MTP joints. Patient was informed and verbally consented to the use of an ambient scribe for clinic note documentation during this visit. [facility] Medical History Postnasal drip Odynophagia Globus sensation Surgical History Hx of endoscopy History of colonoscopy Family History Father Family history of high blood pressure Mother History of cancer Maternal Aunt History of breast cancer Social History Housing: House Alcohol intake: current Alcohol intake frequency: holidays/special occasions only Patient Tobacco Use Status: Never used Tobacco e-Cigarette/Vaping Use: Never Used Second Hand Smoke Exposure: No Current occupational status: employed Sexual orientation: Straight/Heterosexual Gender identity: Female Cognitive needs: No Hearing needs: No Vision needs: No Female Reproductive History Menstrual Age of Menarche: 14 Review of Systems Const All systems reviewed & are unremarkable except as noted in HPI and below Physical Exam Vital Signs: Last Vital Signs Temp 98.2 F 10/31/24 10:49 Pulse 65 10/31/24 10:49 BP 128/80 10/31/24 10:49 Pulse Ox 98 10/31/24 10:49 Oxygen Delivery Method Room Air 10/31/24 10:49 BMI result Body Mass Index 36.8 Results Reviewed Results Reviewed: will review the xray in the office IMPRESSION: There is a mass in the dorsal soft tissues of the first webspace with multifocal coarse and punctate calcifications. This could represent a partially calcified tophus, however there are no erosions to suggest gout. This could represent a foreign body granuloma, hematoma with debris, vascular mass with calcification, or neoplasm. Hallux valgus deformity. Assessment & Plan Assessment & Plan (1) Mass of left foot: Code(s): R22.42 - Localized swelling, mass and lump, left lower limb Plan Most likely bunion vs cyst vs mass Plan - An x-ray of the foot will be conducted to assess the bunion. - Referral to podiatry for further evaluation and management after x-ray results. Orders: Orders XR foot LT min 3V Today R22.42 - Localized swelling, mass and lump, left lower limb Referrals Podiatry Referral R22.42 - Localized swelling, mass and lump, left lower limb Coding Level of Care Code Est Pt Level 4 (30924) Diagnoses Mass of left foot R22.42
== END 2024-10-31 13:20 | disposition home or self-care (01) ==
PROVIDERS: PCP Internal Medicine; Visit Provider Physician Assistant Medical
DX: R22.42 Localized swelling, mass and lump, left lower limb (principal)

== ENCOUNTER 2024-10-31 10:41 | Outpatient (REF) | payer OTHER, SELFPAY ==
--- NOTE | ~2024-10-31 | XR_ITS ---
EXAMINATION: XR FOOT, LEFT CLINICAL INFORMATION: R22.42 - Localized swelling, mass and lump, left lower limb COMPARISON: None available. TECHNIQUE: AP, lateral, and oblique views of the left foot. FINDINGS: There is soft tissue swelling dorsal to the first webspace with multifocal coarse calcifications. There are no visible erosions. There is a bipartite medial sesamoid of the great toe. There is hallux valgus deformity. There are no fractures. There are no osteophytes. XR/XR foot LT min 3V IMPRESSION: There is a mass in the dorsal soft tissues of the first webspace with multifocal coarse and punctate calcifications. This could represent a partially calcified tophus, however there are no erosions to suggest gout. This could represent a foreign body granuloma, hematoma with debris, vascular mass with calcification, or neoplasm. Hallux valgus deformity. Electronically signed by: Demetris Noland MD 10/31/2024 11:57 AM EDT
== END 2024-10-31 10:42 | disposition home or self-care (01) ==
LOC: HO.HMGCX 10:41
PROVIDERS: PCP Internal Medicine; Visit Provider Physician Assistant Medical
DX: R22.42 Localized swelling, mass and lump, left lower limb (principal)
CPT/HCPCS: 73630

== ENCOUNTER → 2024-10-31 11:30 | Outpatient (BNV) | payer OTHER, SELFPAY | PROVIDERS: PCP Internal Medicine; Visit Provider Radiology Diagnostic Radiology | DX: R22.42 Localized swelling, mass and lump, left lower limb (principal) | CPT/HCPCS: 73630 ==

== ENCOUNTER 2025-02-07 13:55 | Outpatient (AMB) | payer OTHER, SELFPAY ==
[2025-02-07 14:00] VITALS: BP 132/68; BMI 35.3
--- NOTE | 2025-02-07 14:00 | MHC.OFFVIS ---
Vital Signs 02/07/25 14:00 Height 5 ft 8 in Weight 232 lb BMI 35.3 BP 132/68 Blood Pressure Location Lt brachial Position Sitting Intake Visit Reasons: DIRECTOR CLIENT annual exam Intake Note: 7-10 days prior to menses has throbbing pain on left side. 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 Cycles monthly cycles x4d, sometimes heavy for 2d. Menarche age 14. Currently sexually active, uses condoms. Denies any vaginal dryness or irritation. STI testing offered; she declined. Attempting to eat a healthy diet with calcium and vitamin D and stays active with exercise. Last pap smear; 2021, negative. Last mammogram; 2024. Colonoscopy is UTD. Denies any family history of breast, ovarian or colon cancer. [facility] Medical History Postnasal drip Odynophagia Globus sensation Surgical History Hx of endoscopy History of colonoscopy Family History Father Family history of high blood pressure Mother History of cancer Maternal Aunt History of breast cancer Family/Other History of breast cancer Social History Housing: House Alcohol intake: current Alcohol intake frequency: holidays/special occasions only Patient Tobacco Use Status: Never used Tobacco e-Cigarette/Vaping Use: Never Used Second Hand Smoke Exposure: No Current occupational status: employed Sexual orientation: Straight/Heterosexual Gender identity: Female Cognitive needs: No Hearing needs: No Vision needs: No Female Reproductive History Menstrual Age of Menarche: 14 Duration of menses: 3-5 days Date of last menstrual period: 01/15/25 control method: none Total pregnancies: 4 Full term: 4 Number of Living Children: 4 Date of last pap smear: 04/09/21 History of abnormal pap smear: No History of STI: No Date of Mammogram: 02/08/24 History of abnormal mammogram: No Review of Systems Const All systems reviewed & are unremarkable except as noted in HPI and below Reports as per HPI Eyes Reports no additional complaints ENT Reports no additional complaints Card Reports no additional complaints Resp Reports no additional complaints GI Reports as per HPI and Reports no additional complaints Reports as per HPI Musc Reports no additional complaints Skin/Breast Reports as per HPI Neuro Reports no additional complaints Psych Reports no additional complaints Endo Reports no additional complaints Armin/Lymph Reports no additional complaints Aller/Immun Reports no additional complaints Physical Exam Vital Signs: Last Vital Signs BP 132/68 02/07/25 14:00 BMI result Body Mass Index 35.3 Const General: cooperative, healthy appearing, no acute distress, well developed and alert Orientation/consciousness: patient oriented x3 HEENT Head: Yes normal to inspection Eyes General: appearance normal, both eyes and all related structures Neck Neck: Yes normal visual inspection Thyroid: Thyroid normal Chest Chest palpation & inspection: normal inspection of the chest and other (no puckering, dimpling, peau de orange, retraction, discharge, masses) Breast/axilla inspection: normal inspection of the breasts Breast/axilla palpation: normal palpation of the breasts Resp Effort & Inspection: normal respiratory effort GI Inspection: Yes normal to inspection Palpation (GI): Soft to palpation Rectal Exam - Female: deferred General: Yes bladder normal to palpation External Female Exam: normal external appearance and normal appearance of the urethra Speculum Exam - Vagina: normal appearance of the vagina, normal palpation and normal vaginal discharge Speculum Exam - Cervix: normal appearance of the cervix and normal palpation Bimanual exam- vagina & uterus: normal bimanual exam, normal palpation, uterine size normal, bladder normal to palpation, normal palpation and non-tender Bimanual Exam- Adnexa, other: no masses Skin General skin exam: no rashes or lesions noted Rashes: no rashes Neuro General: patient oriented x3 Cognition (Neuro): normal cognition Extrem General: Yes normal to inspection Psych Attitude: cooperative Thought process: Normal thought process present Assessment & Plan Assessment & Plan (1) Encounter for well woman exam with routine gynecological exam: Code(s): Z01.419 - Encounter for gynecological examination (general) (routine) without abnormal findings Category: Medical Plan Discussed: Current recommendations for pap smears per ASCCP guidelines. Breast awareness, periodic self breast exams and yearly mammogram. Maintain a healthy lifestyle, well balanced diet including Calcium 1,200 mg and Vitamin D 600 IU daily, and routine exercise. Discussed perimenopausal changes. Menopause verses perimenopause. Menopause is definitive of 1 year of no menses or 12 months in succession. Report any abnormal uterine bleeding in example prolonged episodes, or short intervals less than 24 days. Patient verbalizes understanding and agrees to the plan of care. She was given opportunity to ask questions and all questions were answered to the best of my ability. RTO in 1 year for annual liability claims examiner exam. This note is constructed using voice recognition software. While every effort has been made to ensure accuracy, clinical rehabilitation aide errors may have been included. Orders: Orders US pelvic and transvaginal Today R10.2 - Pelvic and perineal pain Coding Level of Care Code Est Pt Prev Care 40-64y(41617) Diagnoses Encounter for well woman exam with routine gynecological exam Z01.419
--- OUTSIDE RECORDS SUMMARY | 2025-02-07 17:06 | XMS_ITS | Encounter Summary ---
Author Organization [facility] Address [address] [place] [address] [place] [id number] Phone Care Team Providers Care Bar Examiner Name Role Phone Roseanne Edward MD Primary Care Provider [phone] Encounter Details Date Type Department Care Team (Late st Contact Info) Description 12/07/2024 Procedure Pass [facility], [address] [address] Social History Tobacco Use Types Packs/Day Years Used Date Smoking Tobacco: Never Smokeless Tobacco: Never Alcohol Use Standard Drinks/Week Comments Yes 0 (1 standard drink = 0.6 oz pur e alcohol) Education Answer Date Recorded Are you interested in more education? Not on rafi e 11/13/2024 Are you concerned about learning? Not on file 11/13/2024 No 11/13/2024 No 11/13/2024 Digital Access Answer Date Recorded No 11/13/2024 No 11/13/2024 Reliable internet access at home? Not on file 11/13/2024 Device with a working camera? Not on file Comments Unknown Sex and Gender Information Value Date Recorded Sex Assigned at Female 11/13/2024 12:04 PM EDT Legal Sex Female 12:03 PM EDT Gender Identity Female 11/13/2024 12:04 PM EDT Sexual Orientation Straight 11/13/2024 12 :04 PM EDT documented as of this encounter Plan of Treatment Not on file documented as of this encounter Visit Diagnoses Not on filedocumented in this encounter Care Teams Bar Examiner Relationship Specialty Start Date End Date Roseanne Edward MD [facility] [place] [id number] PCP - General Internal Medicine 06/27/24 documented as of this encounter Additional Source Comments The information contained in this document represents components of the legal health record. It is not the complete legal health record.[facility]
--- OUTSIDE RECORDS SUMMARY | 2025-02-07 17:06 | XMS_ITS | Clinical Summary ---
Author Organization [facility] Address [facility] [employer] [facility] [address] [place] [address] Phone Care Team Providers Care Tooth Cutter Contact Wheel Name Role Phone Roseanne Edward MD Primary Care Provider [phone] Allergies No known active allergies Medications No known medications Encounters Date Type Department Care Team Description 01/21/2025 9:37 AM EDT - 01/21/2025 11:59 PM EDT Hospital Encounter [address] [address] [place] Acosta MD Discharge Disposition: Home or Self Care 12/07/2024 8:30 AM EDT Office Visit [facility] Orthopedics & Sports Medicine [address] [place] [address] [place] Acosta MD Foot mass, left (Primary Dx); Left foot pain 12/07/2024 8:19 AM EDT - 12/07/2024 11:59 PM EDT Hospital Encounter [address] [address] [place] Acosta MD Discharge Disposition: Home or Self Care 12/07/2024 Procedure Pass [address] [address] from Last 3 Months Social History Tobacco Use Types Packs/Day Years Used Date Smoking Tobacco: Never Smokeless Tobacco: Never Tobacco Cessation:Counseling Given: Not Answered Alcohol Use Standard Drinks/Week Comments Yes 0 [...] Orientation Straight 11/13/2024 12 :04 PM EDT Last Filed Vital Signs Vital Sign Reading Time Taken Comments Blood Pressure - - Pulse - - Temperature - - Respiratory Rate - - Oxygen Saturation - - Inhaled Oxygen Concentration - - Weight 99.8 kg (220 lb) 01/16/2025 1:17 PM EDT Height 172.7 cm (5' 8 ) 01/16/2025 1:17 PM EDT Body Mass Index 33.45 01/16/2025 1:17 PM EDT Plan of Treatment Health Maintenance Due Date Last Done Comments LIPID PANEL 1970 DEPRESSION SCREENING 1982 HEPATITIS C SCREENING 1988 HIV ONE-TIME SCREENING (18-6 5 YEARS) 1988 PAP SMEAR 09/11/1991 SCREENING FOR DIABETES 2005 MAMMOGRAM 2010 COLOGUARD 09/11/2015 COLONOSCOPY 09/11/2015 COLORECTAL CANCER SCREENING 09/11/2015 FIT TEST 09/11/2015 FOBT 09/11/2015 SIGMOIDOSCOPY 09/11/2015 VIRTUAL COLONOSCOPY 09/11/2015 PNEUMOCOCCAL VACCINES (50+ years) (1 of 1 - PCV) 2020 ZOSTER VACCINES (1 of 2) 2020 INFLUENZA VACCINE (#1) 2024 03/20/2008 COVID-19 VACCINE (3 - 2024-2 6 season) 2024 12/12/2020, 10/24/2020 Adult Td,Tdap Booster 11/04/2030 11/04/2020 , 03/20/2008 RSV VACCINE (1 - 1-dose 75+ series) 2045 SMOKING STATUS SCREENING (On ce After 26 Yrs) Completed 12/07/2024 HEPATITIS A VACCINES Aged Out No long er eligible based on patient's age to complete this topic HIB VACCINES Aged Out No longer eligi ble based on patient's age to complete this topic IPV VACCINES Aged Out No longer eligi ble based on patient's age to complete this topic MENINGOCOCCAL VACCINES (ACWY) Aged Out No longer eligible based on patient's age to complete this topic MENINGOCOCCAL VACCINES (B) Aged Out N o longer eligible based on patient's age to complete this topic Medical Devices Not on file Procedures Procedure Name Priority Date/Time Associated Diagnosis Comments MRI FOOT WITH AND WITHOUT CONTRAST (LEFT) Routine 01/21/2025 11:32 AM EDT Foot mass, left XR FOOT 3 OR MORE VIEWS (LEFT) Routine 12/07/2024 8:27 AM EDT Left foot pain from Last 3 Months Results * MRI FOOT WITH AND WITHOUT CONTRAST (LEFT) (01/21/2025 11:32 AM EDT) Anatomical Region Laterality Modality Foot Left Magnetic Resonan ce 01/23/2025 10:1 6 AM EDT Impressions 01/23/2025 10:29 AM EDT 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 Narrative 01/23/2025 10:29 AM EDT MRI FOOT WITH AND WITHOUT CONTRAST (LEFT) Referring clinician's provided indication for this examination in Epic: * Soft tissue mass, foot, no prior imaging; 2-cm 1st web space mass since June 2024, nontender, small calcifications on plain films TECHNIQUE: Multi-sequence, multi-planar MRI of the foot with and without intravenous contrast. COMPARISON: XR FOOT 3 OR MORE VIEWS (LEFT) FINDINGS: Bone: Bipartite medial hallux sesamoid. No fracture, osteonecrosis, or focal lesion. Joints: There are full-thickness cartilage defects of the first metatarsophalangeal joint with subchondral edema. Soft tissues: There is a multilobulated cystic structure measuring approximately 3.3 x 2.1 x 2.4 cm arising from the lateral aspect of the first metatarsophalangeal joint. It demonstrates thin peripheral enhancement. The dorsal components contain mineralized, likely osteocartilaginous bodies. There is a similar, smaller cystic structure along the medial first metatarsophalangeal joint measuring 0.6 x 1.8 x 0.9 cm. Ligaments and tendons are intact. Procedure Note Gertrude Soto MD - 01/23/2025 MRI FOOT WITH AND WITHOUT CONTRAST (LEFT) Referring clinician's provided indication for this examination in Epic: *Soft tissue mass, foot, no prior imaging; 2-cm 1st web space mass sinceApril 2024, nontender, small calcifications on plain films TECHNIQUE: Multi-sequence, multi-planar MRI of the foot with and withoutintravenous contrast. COMPARISON: XR FOOT 3 OR MORE VIEWS (LEFT) FINDINGS: Bone: Bipartite medial hallux sesamoid. No fracture, osteonecrosis, orfocal lesion. Joints: There are full-thickness cartilage defects of the firstmetatarsophalangeal joint with subchondral edema. Soft tissues: There is a multilobulated cystic structure measuringapproximately 3.3 x 2.1 x 2.4 cm arising from the lateral aspect of thefirst metatarsophalangeal joint. It demonstrates thin peripheralenhancement. The dorsal components contain mineralized, likelyosteocartilaginous bodies. There is a similar, smaller cystic structurealong the medial first metatarsophalangeal joint measuring 0.6 x 1.8 x 0.9cm. Ligaments and tendons are intact. 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 [place] Acosta MD [facility] [place]REM[place] Final Result * XR FOOT 3 OR MORE VIEWS (LEFT) (12/07/2024 8:27 AM EDT) Narrative SYSTEMGENERATED, DOCUMENTATION - 12/07/2024 8:27 AM EDT This image report has been auto-finalized and has not been read by a Radiologist. Interpretation has been included in the provider encounter note for this date of service. Warren Acosta MD IMG XR LOWER EXTREMITY Final Result from Last 3 Months Insurance O [facility] HMO Care Teams Tooth Cutter Contact Wheel Relationship Specialty Start Date End Date Roseanne Edward MD [address] [facility] [place] [address] PCP - General Internal Medicine 06/27/24 Additional Source Comments The information contained in this document represents components of the legal health record. It is not the complete legal health record.[facility]
== END 2025-02-07 14:45 | disposition home or self-care (01) ==
LOC: HO.HWS 13:55
PROVIDERS: PCP Internal Medicine; Visit Provider Advanced Practice Midwife
DX: Z01.419 Encounter for gynecological examination (general) (routine) without abnormal findings (principal)
CPT/HCPCS: 99396; 99459

== ENCOUNTER 2025-02-19 10:37 | Outpatient (REF) | payer OTHER, SELFPAY ==
--- NOTE | ~2025-02-19 | US_ITS ---
CLINICAL HISTORY: R10.2 - Pelvic and perineal pain US pelvis transabdominal and transvaginal Comparison: None provided Findings: Transvaginal and transabdominal scanning performed. Imaged uterus is anteverted and mildly retroflexed measuring 9.5 cm long axis. Portions of the uterus are obscured by side of the artifacts. Imaged endometrium redemonstrated series nonuniformity and measures up to 9 mm thickness. Mixed echogenicity of the dome of the uterus is nonspecific and likely represent fibroid measuring 1.2 x 1.4 x 1.5 cm. No prior uterus imaging available for review at this time No significant free fluid in the imaged pelvis. Cystic structure adjacent to the cervix measures 1 cm likely due to nabothian cysts. Multiple additional small nabothian cysts also suggested. Right ovary measures 2.9 x 2.3 x 1.6 cm. Left ovary 2.4 x 1.9 x 1.1 cm. IMPRESSION: 1. Nonuniformity of the imaged endometrium. Please consider short-term follow-up in the 6 weeks or 10 weeks. Imaged endometrium measures 9 mm thickness. Please consider endometrial biopsy of the tissue sampling, if not already achieved, especially if the patient is postmenopausal. 2. No ultrasound findings of ovarian torsion. This document has been electronically signed by: Benitez Guzman MD on 02/20/2025 03:10:34
--- OUTSIDE RECORDS SUMMARY | 2025-02-19 13:18 | XMS_ITS | Encounter Summary ---
Author Organization [facility] Address [address] [place] [address] [place] [address] Phone Care Team Providers Care Beater Lead Name Role Phone Roseanne Edward MD Primary Care Provider [phone] Encounter Details Date Type Department Care Team (Late Contact Info) Description 12/07/2024 Procedure Pass [facility], [address] [address] Social History Tobacco Use Types Packs/Day Years [...] as of this encounter Plan of Treatment Upcoming Encounters Date Type Department Care Team (Late Contact Info) Description 03/02/2025 4:15 PM EST Office Visit [facility] Orthopedics & Sports Medicine [address] [place] [address] [place] Acosta MD [address] [place] [address] Orthopedics & Sports Medicine, [place] [address] [email or web address] documented as of this encounter Visit Diagnoses Not on filedocumented in this encounter Care Teams Beater Lead Relationship Specialty Start Date End Date Roseanne Edward MD [facility] [place] [address] PCP - General Internal Medicine 06/27/24 documented as of this encounter Additional Source Comments The information contained in this document represents components of the legal health record. It is not the complete legal health record.[facility]
--- OUTSIDE RECORDS SUMMARY | 2025-02-19 13:18 | XMS_ITS | Clinical Summary ---
Author Organization [facility] Address [facility] [address] [place] [address] Phone Care Team Providers Care Rehabilitation Nurse Name Role Phone Roseanne Edward MD Primary Care Provider [phone] Allergies No known active allergies Medications No known medications Encounters Date Type Department Care Team Description 01/21/2025 9:37 AM EDT - 01/21/2025 11:59 PM EDT Hospital Encounter [address] [address] [place] Acosta MD Discharge Disposition: Home or Self Care 12/07/2024 8:30 AM EDT Office Visit [facility] Orthopedics & Sports Medicine [address] [place] [address] [place] Acosta MD Foot mass, left (Primary Dx); Left foot pain 12/07/2024 8:19 AM EDT - 12/07/2024 11:59 PM EDT Hospital Encounter [address] [address] [place] Acosta MD Discharge Disposition: Home or Self Care 12/07/2024 Procedure Pass [address] [address] from Last 3 Months Social History Tobacco [...] 01/16/2025 1:17 PM EDT Plan of Treatment Upcoming Encounters Date Type Department Care Team (Late st Contact Info) Description 03/02/2025 4:15 PM EST Office Visit [facility] Orthopedics & Sports Medicine [address] [place] [address] [place] Acosta MD [address] [place] [address] Orthopedics & Sports Medicine, [facility] [place] [address] [email or web address] Health Maintenance Due Date Last Done Comments [...] XR FOOT 3 OR MORE VIEWS (LEFT) 2024- FINDINGS: Bone: Bipartite medial hallux sesamoid. No [...] prior imaging; 2-cm 1st web space mass sinceJune 2024, nontender, small calcifications on plain films TECHNIQUE: Multi-sequence, multi-planar MRI of the foot with and withoutintravenous contrast. COMPARISON: XR FOOT 3 OR MORE VIEWS (LEFT) 2024- FINDINGS: Bone: Bipartite medial hallux sesamoid. No [...] measuring up to3.3 cm. Warren Acosta MD IMG MR EXTREMITY Final Result * XR FOOT [...] Result from Last 3 Months Insurance O O HMO Care Teams Rehabilitation Nurse Relationship Specialty Start Date End Date Roseanne Edward MD [address] [place] [address] PCP - General Internal Medicine 06/27/24 Additional Source Comments The information contained in this document represents components of the legal health record. It is not the complete legal health record.[facility]
== END 2025-02-19 10:38 | disposition home or self-care (01) ==
LOC: HO.US 10:37
PROVIDERS: PCP Internal Medicine; Visit Provider Advanced Practice Midwife
DX: R10.23 Pelvic and perineal pain bilateral (principal)
CPT/HCPCS: 76830; 76856

== ENCOUNTER → 2025-02-19 10:39 | Outpatient (BNV) | payer OTHER, SELFPAY | PROVIDERS: PCP Internal Medicine; Visit Provider Radiology Neuroradiology | DX: R10.20 Pelvic and perineal pain unspecified side (principal) | CPT/HCPCS: 76830; 76856 ==

== ENCOUNTER 2025-03-07 12:38 | Outpatient (AMB) | payer OTHER, SELFPAY ==
--- NOTE | 2025-03-07 12:47 | MHC.OFFVIS ---
Vital Signs 03/07/25 12:49 Height 5 ft 8 in Weight 234 lb BMI 35.6 BP 124/76 Blood Pressure Location Rt brachial Position Sitting Intake Visit Reasons: u/s follow up Intake Note: review u/s that was done on 02/20/25 Hat Finisher Required: No Information Interpreted: non-clinical & clinical Pickling Tank Operator: Pickling Tank Operator Present (rakan) Accompanied by: Self / Same As Patient Allergies No Known Allergies (No Known Allergies*) Allergy (Verified 03/07/25 12:50) Medication List - Last Reconciled 03/07/25 by Radha Boyd LPN ibuprofen (Advil) 400 mg PO Q8H Is last menstrual period known: Yes Last menstrual period: 02/13/25 (has period every month) Do you need a note to return to daycare/school/sports/work: No HPI Comments Details: Patient is here today for a follow up pelvic ultrasound. History of left sided pelvic pain 7-10 before her menses. Cycles monthly x4d, sometimes heavy for 2d. She has not skipped her menses. PFSH Medical History Heavy menses Thickened endometrium Pelvic pain Postnasal drip Odynophagia Globus sensation Surgical History Hx of endoscopy History of colonoscopy Family History Father Family history of high blood pressure Mother History of cancer Maternal Aunt History of breast cancer Family/Other History of breast cancer Social History Housing: House Alcohol intake: current Alcohol intake frequency: holidays/special occasions only Patient Tobacco Use Status: Never used Tobacco e-Cigarette/Vaping Use: Never Used Second Hand Smoke Exposure: No Current occupational status: employed Sexual orientation: Straight/Heterosexual Gender identity: Female Cognitive needs: No Hearing needs: No Vision needs: No Female Reproductive History Menstrual Age of Menarche: 14 Date of last menstrual period: 02/13/25 (has period every month) control method: condoms Total pregnancies: 4 Number of Living Children: 4 Date of last pap smear: 04/08/21 History of abnormal pap smear: No Date of Mammogram: 02/18/24 Review of Systems Const All systems reviewed & are unremarkable except as noted in HPI and below Endo Reports no additional complaints Physical Exam Vital Signs: Last Vital Signs BP 124/76 03/07/25 12:49 BMI result Body Mass Index 35.6 Const General: cooperative, healthy appearing and no acute distress Psych Appearance: well kempt Attitude: cooperative Thought process: Normal thought process present Results Reviewed Results Reviewed: [address] [address] Ultrasound Report Signed Patient: Alison Peacock MR#: [id number] : 1970 Acct:[id number] Age/Sex: 54 / F ADM Date: 02/19/25 Loc: HO.US Attending Dr: Angelina Llamas CNM Ordering Physician: Angelina Llamas CNM Date of Service: 02/19/25 Procedure(s): US pelvic and transvaginal Accession Number(s): [id number] cc: Roseanne Edward MD; Angelina Llamas CNM~ Reason for Exam: R10.2 - Pelvic and perineal pain CLINICAL HISTORY: R10.2 - Pelvic and perineal pain US pelvis transabdominal and transvaginal Comparison: None provided Findings: Transvaginal and transabdominal scanning performed. Imaged uterus is anteverted and mildly retroflexed measuring 9.5 cm long axis. Portions of the uterus are obscured by side of the artifacts. Imaged endometrium redemonstrated series nonuniformity and measures up to 9 mm thickness. Mixed echogenicity of the dome of the uterus is nonspecific and likely represent fibroid measuring 1.2 x 1.4 x 1.5 cm. No prior uterus imaging available for review at this time No significant free fluid in the imaged pelvis. Cystic structure adjacent to the cervix measures 1 cm likely due to nabothian cysts. Multiple additional small nabothian cysts also suggested. Right ovary measures 2.9 x 2.3 x 1.6 cm. Left ovary 2.4 x 1.9 x 1.1 cm. IMPRESSION: 1. Nonuniformity of the imaged endometrium. Please consider short-term follow-up in the 6 weeks or 10 weeks. Imaged endometrium measures 9 mm thickness. Please consider endometrial biopsy of the tissue sampling, if not already achieved, especially if the patient is postmenopausal. 2. No ultrasound findings of ovarian torsion. This document has been electronically signed by: Benitez Guzman MD on 02/20/2025 03:10:34 Dictated By: Benitez Guzman MD Signed By: <Electronically signed by Benitez Guzman MD in OV> 02/20/25310 DD/ 9 TD/TT: 02/20/25309 Plug Stitcher: Assessment & Plan Assessment & Plan (1) Thickened endometrium: Code(s): R93.89 - Abnormal findings on diagnostic imaging of other specified body structures Category: Medical Plan Discussed: Ultrasound findings- IMPRESSION: 1. Nonuniformity of the imaged endometrium. Please consider short-term follow-up in the 6 weeks or 10 weeks. Imaged endometrium measures 9 mm thickness. Please consider endometrial biopsy of the tissue sampling, if not already achieved, especially if the patient is postmenopausal. 2. No ultrasound findings of ovarian torsion. Plan repeat ultrasound after next cycle for a recheck on nonuniformity. Advised endometrial biopsy procedure to rule out any atypia, hyperplasia, precancer or cancer. Preprocedure anticipatory guidance reviewed advised to take 3 Advil with food and fluids 1 hour before her procedure. The patient expressed understanding and agreement with the plan of care. All of her questions and concerns were addressed to the best of my ability. This note is constructed using voice recognition software. While every effort has been made to ensure accuracy, complaint inspector errors may have been included. Orders: Orders US pelvic and transvaginal 03/19/25 N92.0 - Excessive and frequent menstruation with regular cycle, R93.89 - Abnormal findings on diagnostic imaging of other specified body structures Coding Level of Care Code Est Pt Level 3 (57142) Diagnoses Thickened endometrium R93.89
[2025-03-07 12:49] VITALS: BP 124/76; BMI 35.6
== END 2025-03-07 13:21 | disposition home or self-care (01) ==
LOC: HO.HWS 12:39
PROVIDERS: PCP Internal Medicine; Visit Provider Advanced Practice Midwife
DX: R93.89 Abnormal findings on diagnostic imaging of other specified body structures (principal)
CPT/HCPCS: 99213

== ENCOUNTER 2025-03-12 16:01 | Outpatient (REF) | payer OTHER, SELFPAY ==
--- NOTE | ~2025-03-12 | MM_ITS ---
EXAMINATION: MM SCREENING DIGITAL BREAST TOMOSYNTHESIS, BILATERAL CLINICAL INFORMATION: Screening. Asymptomatic. COMPARISON: Mammography: Comparison is made with available priors TECHNIQUE: Digital breast mammography with tomosynthesis is performed in both the craniocaudal and mediolateral oblique views along with computer-aided detection (CAD). FINDINGS: The breasts are heterogeneously dense, which may obscure small masses. There are no significant masses, abnormal calcifications, or other abnormalities. MM/MM tomosynthesis screening BI IMPRESSION: No mammographic evidence of malignancy. ASSESSMENT: BI-RADS Category 1: Negative RECOMMENDATION: Routine annual mammography screening. 1 year F/U This examination should not preclude the clinical evaluation of a suspicious palpable abnormality. This patient's information was entered into a reminder system with a target due date for their next mammogram. Electronically signed by: Karen Woods DO 03/14/2025 04:24 PM JOSE ROBERTO
--- OUTSIDE RECORDS SUMMARY | 2025-03-12 22:24 | XMS_ITS | Clinical Summary ---
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 Encounters Date Type Department Care Team Description 03/02/2025 4:15 PM EST Office Visit [facility] Orthopedics & Sports Medicine [address] [place] [address] [place] Acosta MD Synovial chondromatosis (Primary Dx) 01/21/2025 9:37 AM EDT - 01/21/2025 11:59 PM EDT Hospital Encounter [address] [address] [place] Acosta MD Discharge Disposition: Home or Self Care 12/07/2024 Procedure Pass [address] [address] from Last 3 Months Social History Tobacco [...] - Inhaled Oxygen Concentration - - Weight 95.3 kg (210 lb) 03/02/2025 4:03 PM EST Height 170.2 cm (5' 7 ) 03/02/2025 4:03 PM EST Body Mass Index 32.89 03/02/2025 4:03 PM EST Plan of Treatment Health Maintenance Due Date [...] SCREENING (On ce After 26 Yrs) Completed 03/02/2025 HEPATITIS A VACCINES Aged Out No long [...] 01/21/2025 11:32 AM EDT Foot mass, left from Last 3 Months Results * MRI [...] measuring up to3.3 cm. Warren Acosta MD IM MR EXTREMITY Final Result from Last 3 Months Insurance [facility] HMO O O Care Teams Vending Machine Mechanic Relationship Specialty Start Date End Date Roseanne Edward MD [address] [facility] [place] [address] PCP - General Internal Medicine 06/27/24 Additional Source Comments The information contained in this document represents components of the legal health record. It is not the complete legal health record.[facility]
--- OUTSIDE RECORDS SUMMARY | 2025-03-12 22:24 | XMS_ITS | Encounter Summary ---
Author Organization [facility] Address [address] [place] [address] [place] [address] Phone Care Team Providers Care Signal Operator Technical Name Role Phone Roseanne Edward MD Primary Care Provider [phone] Encounter Details Date Type Department Care Team (Late st Contact Info) Description 12/07/2024 Procedure Pass [facility], [address] [address] Social History Tobacco Use Types Packs/Day Years [...] on filedocumented in this encounter Care Teams Signal Operator Technical Relationship Specialty Start Date End Date Roseanne Edward MD [facility] [place] [address] PCP - General Internal Medicine 06/27/24 documented as of this encounter Additional Source Comments The information contained in this document represents components of the legal health record. It is not the complete legal health record.[facility]
== END 2025-03-12 16:02 | disposition home or self-care (01) ==
LOC: HO.MAMMO 16:01
PROVIDERS: PCP Internal Medicine; Visit Provider Internal Medicine
DX: R93.89 Abnormal findings on diagnostic imaging of other specified body structures (principal); N92.0 Excessive and frequent menstruation with regular cycle; Z12.31 Encounter for screening mammogram for malignant neoplasm of breast
CPT/HCPCS: 77063; 77067

== ENCOUNTER → 2025-03-12 16:15 | Outpatient (BNV) | payer OTHER, SELFPAY | PROVIDERS: PCP Internal Medicine; Visit Provider Internal Medicine | DX: Z12.31 Encounter for screening mammogram for malignant neoplasm of breast (principal) | CPT/HCPCS: 77063; 77067 ==

== ENCOUNTER 2025-03-13 13:28 | Outpatient (AMB) | payer OTHER, SELFPAY ==
[2025-03-13 13:33] VITALS: BP 128/78; PULSE 73; O2SAT 97; BMI 35.9
--- NOTE | 2025-03-13 13:33 | MHC.PC.OV ---
Vital Signs 03/13/25 13:33 Height 5 ft 8 in Weight 236 lb BMI 35.9 BP 128/78 Blood Pressure Location Rt brachial Position Sitting Pulse 73 Pulse Source Pulse Oximeter Pulse Oximetry (%) 97 Intake Visit Reasons: Cold sore under nose Allergies No Known Allergies (No Known Allergies*) Allergy (Verified 03/13/25 13:36) Medication List - Last Reconciled 03/13/25 by Roseanne Edward MD ibuprofen (Advil) 400 mg PO Q8H Tobacco use date assessed: 06/21/24 Dental Screening Dental Screen Date: 06/21/24 HPI HPI Comments History of Present Illness Details History of Present Illness The patient is a 54 year old female presenting with a cold sore under her nose. Herpes Simplex Dermatitis: - The patient reports a cold sore under her nose on the right side for the past 7 days. - Symptoms include persistent itching and a burning sensation. - The lesion is also located slightly inside the right nostril. - She reports that the condition is not improving with time. - She has a history of getting cold sores about once a year, typically on her lip. - She has never had a cold sore under her nose before. 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 Medical History: - History of recurrent cold sores, approximately once a year. [facility], LAT[facility] Medical History Heavy menses Thickened endometrium Pelvic pain Postnasal drip Odynophagia Globus sensation Surgical History Hx of endoscopy History of colonoscopy Family History Father Family history of high blood pressure Mother History of cancer Maternal Aunt History of breast cancer Family/Other History of breast cancer Social History Housing: House Alcohol intake: current Alcohol intake frequency: holidays/special occasions only Patient Tobacco Use Status: Never used Tobacco e-Cigarette/Vaping Use: Never Used Second Hand Smoke Exposure: No Current occupational status: employed Sexual orientation: Straight/Heterosexual Gender identity: Female Cognitive needs: No Hearing needs: No Vision needs: No Female Reproductive History Menstrual Age of Menarche: 14 Questionnaire PHQ-9 Over the last 2 weeks, how often have you been bothered by any of the following problems? 1. Little interest or pleasure in doing things: several days 2. Feeling down, depressed, or hopeless: several days 3. Trouble falling or staying asleep, or sleeping too much: several days 4. Feeling tired or having little energy: several days 5. Poor appetite or overeating: not at all 6. Feeling bad about yourself - or that you are a failure or have let yourself or your family down: not at all 7. Trouble concentrating on things, such as reading the newspaper or watching television: not at all 8. Moving or speaking so slowly that other people could have noticed. Or the opposite - being so fidgety or restless that you have been moving around a lot more than usual: not at all 9. Thoughts that you would be better off or of hurting yourself in some way: not at all Total score: 4 Depression Screening Interpretation: Negative Depression Screening Done: Yes 50776 - PHQ-9 Billing: Yes Source: Developed by Drs. Trae Granger, Zara Vasquez, Jacob Helms and colleagues, with an educational laura from [employer]. Thrive Questionnaire Date Thrive assessed: 06/20/24 I am a: Patient What is your living situation today?: I have a steady place to live Within the past 12 months, did the food you bought not last and you didn't have the money to get more?: Never true Within the past 12 months, did you worry whether your food would run out before you got money to buy more?: I choose not to answer this question Do you have trouble paying for medicines?: I choose not to answer this question Do you have trouble getting transportation to medical appointments?: No Do you have trouble paying your heating and electricity bill?: I choose not to answer this question Do you have trouble taking care of your child, family member or friend?: No Do you have trouble with day-to-day activities such as bathing, preparing meals, shopping, managing finances, etc.?: No Are you currently unemployed and looking for a job?: No Are you interested in more education?: I choose not to answer this question Please select the resources that you would like help with: None Currently or been in a relationship where the following occur: I choose not to answer THRIVE Score: 0 AUDIT C Alcohol Use Questionnaire (AUDIT-C) 2. How many drinks containing alcohol do you have on a typical day when you are drinking?: 1 or 2 Total Score: 0 TERRENCE-7 AMB Questionnaire TERRENCE-7 Date TERRENCE - 7 assessed: 06/21/24 Source: Developed by Drs. Trae Granger, Zara Vasquez, Jacob Helms and colleagues, with an educational laura from [employer]. Review of Systems Narrative Review of Systems - General: No fever no chills - Neurological: No headaches no dizziness - Ear nose throat: No sore throat no hearing difficulty no ear pain - Cardiovascular: No syncope, no chest pain, no palpitations - Gastrointestinal: No nausea vomiting or diarrhea Physical exam (Primary Care) Vital Signs: Last Vital Signs Pulse 73 03/13/25 13:33 BP 128/78 03/13/25 13:33 Pulse Ox 97 03/13/25 13:33 BMI result Body Mass Index 35.9 Tobacco/Smoking Status: Tobacco use Status Tobacco use date assessed 06/21/24 03/13/25 13:37 Patient Tobacco Use Status Never used Tobacco 03/13/25 13:37 e-Cigarette/Vaping Use Never Used 03/13/25 13:37 PHQ-9: PHQ-9 Score PHQ-9: Total score 4 03/13/25 14:49 Depression Screening Interpretation: Negative Thrive Assessment: Date of Thrive Assessment Date Thrive assessed 06/20/24 03/13/25 13:37 Currently or been in a relationship where the following occur: I choose not to answer Narrative Physical Exam General: No acute distress HEENT: Cold sore under the right nostril, slight inflammation noted Neck: Supple Respiratory system: Able to talk in full sentences, no audible wheeze Extremities: No new findings 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 x3 motor intact Skin: Normal turgor, scab noted around sore right nosteril, raising possibility of bacterial infection as well Coding Level of Care Code Est Pt Level 3 (53219) Diagnoses Herpes dermatitis B00.89 Erysipelas of face A46 Additional Codes PHQ-9 - 35806 - PHQ-9 Billing: Yes ([id number]) Assessment & Plan Assessment & Plan (1) Herpes dermatitis: Code(s): B00.89 - Other herpesviral infection Category: Medical (2) Erysipelas of face: Code(s): A46 - Erysipelas Category: Medical Plan Problem List - Herpes Simplex Dermatitis - Suspected superimpose bacterial skin infection Plan - The patient's symptoms of burning and itching are indicative of a viral cold sore. - Due to the 7-day duration without improvement, a superimposed bacterial skin infection is also suspected. - An antiviral medication will be prescribed, to be taken one tablet twice a day for three days. - An antibiotic will also be prescribed for seven days. - The patient should monitor the area for 48 hours after starting medication. - Follow-up in one week was advised. Medications: New valacyclovir 1,000 mg PO BID 6 tabs 0RF Herpes Zoster 3 days amoxicillin-pot clavulanate 875-125 mg 1 tab PO BID 14 tabs 0RF 7 days
--- OUTSIDE RECORDS SUMMARY | 2025-03-13 17:35 | XMS_ITS | Encounter Summary ---
Author Organization [facility] Address [address] [place] [address] [place] [address] Phone Care Team Providers Care Pony Cylinder Press Operator Name Role Phone Roseanne Edward MD Primary Care Provider [phone] Encounter Details Date Type Department Care Team (Late st Contact Info) Description 12/07/2024 Procedure Pass [facility], [address] [address] Social History Tobacco Use Types Packs/Day Years [...] on filedocumented in this encounter Care Teams Pony Cylinder Press Operator Relationship Specialty Start Date End Date Roseanne Edward MD [facility] [place] [address] PCP - General Internal Medicine 06/27/24 documented as of this encounter Additional Source Comments The information contained in this document represents components of the legal health record. It is not the complete legal health record.[facility]
--- OUTSIDE RECORDS SUMMARY | 2025-03-13 17:36 | XMS_ITS | Clinical Summary ---
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 Encounters Date Type Department Care Team Description 03/02/2025 4:15 PM EST Office Visit [facility] [address] [place] [address] Warren Acosta MD Synovial chondromatosis (Primary Dx) 01/21/2025 9:37 AM EDT - 01/21/2025 11:59 PM EDT Hospital Encounter [address] [address] Warren Acosta MD Discharge Disposition: Home or Self Care 12/07/2024 Procedure Pass [address] [address] from Last 3 Months Social History Tobacco [...] Final Result from Last 3 Months Insurance [facility] HMO O Care Teams Landman Relationship Specialty Start Date End Date Roseanne Edward MD [address] [facility] [place] [address] PCP - General Internal Medicine 06/27/24 Additional Source Comments The information contained in this document represents components of the legal health record. It is not the complete legal health record.[facility]
== END 2025-03-13 13:47 | disposition home or self-care (01) ==
LOC: HO.HMCC 13:29
PROVIDERS: PCP Internal Medicine; Visit Provider Internal Medicine
DX: B00.89 Other herpesviral infection (principal); A46 Erysipelas

== ENCOUNTER → 2025-03-13 13:28 | Outpatient (BNVA) | payer OTHER, SELFPAY | PROVIDERS: PCP Internal Medicine; Visit Provider Internal Medicine | DX: B00.89 Other herpesviral infection (principal); A46 Erysipelas | CPT/HCPCS: 96127 ==

== ENCOUNTER 2025-03-20 14:56 | Outpatient (REF) | payer OTHER, SELFPAY ==
--- NOTE | ~2025-03-20 | US_ITS ---
EXAMINATION: US PELVIS CLINICAL INFORMATION: Menorrhagia and endometrial thickening COMPARISON: 02/19/2025 TECHNIQUE: Ultrasound of the pelvis is performed using both transabdominal and transvaginal transducers along with Doppler. Transvaginal imaging is performed due to inadequate visualization transabdominally. FINDINGS: Uterus: The uterus is retroflexed and measures 12 x 8 x 7 cm. The double wall endometrial thickness is 11 mm. The thickness of the stripe is somewhat irregular. There is heterogeneous intramural leiomyoma in the posterior upper uterine body measuring 17 x 15 x 18 mm, preceded 12 x 13 x 14 mm. Adnexa: Both ovaries are visualized. There is normal color flow to the adnexa. There is no ovarian torsion. There is no pelvic ascites or fluid collection. Right ovary measures 3.3 x 1.5 x 2.0 cm. Left ovary measures 2.9 x 1.4 x 2.2 cm. US/US pelvic and transvaginal IMPRESSION: Thickness of the endometrial stripe is 11 mm. However, the endometrial stripe thickness is somewhat irregular. If the patient is premenopausal, the thickness is within normal limits. If the patient is postmenopausal, possible etiologies could include hyperplasia, polyp, or carcinoma. Intramural leiomyoma measuring 18 mm. Electronically signed by: Demetris Noland MD 03/20/2025 03:44 PM JOSE ROBERTO
--- OUTSIDE RECORDS SUMMARY | 2025-03-20 16:13 | XMS_ITS | Encounter Summary ---
Author Organization [facility] Address [address] [place] [address] [place] [address] Phone Care Team Providers Care Copier Repair Technician Name Role Phone Roseanne Edward MD Primary Care Provider [phone] Encounter Details Date Type Department Care Team (Late st Contact Info) Description 12/07/2024 Procedure Pass [facility], [address] [address] Social History Tobacco Use Types Packs/Day Years [...] on filedocumented in this encounter Care Teams Copier Repair Technician Relationship Specialty Start Date End Date Roseanne Edward MD [facility] [place] [address] PCP - General Internal Medicine 06/27/24 documented as of this encounter Additional Source Comments The information contained in this document represents components of the legal health record. It is not the complete legal health record.[facility]
--- OUTSIDE RECORDS SUMMARY | 2025-03-20 16:13 | XMS_ITS | Clinical Summary ---
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 Encounters Date Type Department Care Team Description 03/02/2025 4:15 PM EST Office Visit [facility] [address] [place] [address] Warren Acosta MD Synovial chondromatosis (Primary Dx) 01/21/2025 9:37 AM EDT - 01/21/2025 11:59 PM EDT Hospital Encounter [address] [address] Warren Acosta MD Discharge Disposition: Home or Self Care 12/07/2024 Procedure Pass [address] [address] from Last 3 Months Social History Tobacco [...] Final Result from Last 3 Months Insurance [facility] HMO O Care Teams Tune Up Mechanic Relationship Specialty Start Date End Date Roseanne Edward MD [address] [facility] [place] [address] PCP - General Internal Medicine 06/27/24 Additional Source Comments The information contained in this document represents components of the legal health record. It is not the complete legal health record.[facility]
== END 2025-03-20 14:57 ==
LOC: HO.HMGCX 14:56
PROVIDERS: PCP Internal Medicine; Visit Provider Advanced Practice Midwife
DX: R93.89 Abnormal findings on diagnostic imaging of other specified body structures (principal); N92.0 Excessive and frequent menstruation with regular cycle
CPT/HCPCS: 76830; 76856

== ENCOUNTER → 2025-03-20 15:05 | Outpatient (BNV) | payer OTHER, SELFPAY | PROVIDERS: PCP Internal Medicine; Visit Provider Radiology Diagnostic Radiology | DX: D25.1 Intramural leiomyoma of uterus (principal) | CPT/HCPCS: 76830; 76856 ==